=== PATIENT | male | born 1975 | race Caucasian/White ===

== ENCOUNTER 2016-11-30 12:00 | Emergency (ER) | payer OTHER ==
[~2016-11-30] VITALS: Ht 185.4 cm; Wt 108.9 kg
[~2016-11-30 12:00] MED LIST: 'XANAX1 MG PO; ANAPROX DS550 MG PO; ATARAX,VISTARIL50 MG PO; BACTRIM DS 8001 TAB PO; CARBIDOPA/LEVOD1 TA1 PO; CLINDAMYCIN HC300 MG PO; DAYPRO600 M1 PO; ESCITALOPRAM OX10 MG PO; GEODON80 MG PO; HYDROCODONE BIT1 T11 PO; INDOCIN25 MG PO; KEFLEX500 M1 PO; LAMICTAL100 MG PO; LAMOTRIGINE100 MG PO; MOTRIN800 MG PO; Motrin,Rufen800 MG PO; ROBAXIN750 MG PO; SEPTRA DS 800 M1 TAB PO; SUBOXONE 8 MG-1 EACH SL; TRAMADOL HCL50 MG PO; TRIMOX500 MG PO; ULTRAM50 MG PO; VICODIN 5/500 505 MG PO; VOLTAREN50 M1 PO; XANAX2 MG PO; ZOFRAN 4 MG ED2 TAB PO
[2016-11-30] MEDS ORDERED: IBU800 MG PO (12:38)
[2016-11-30] MEDS ORDERED: CEPHALEXIN500 M1 PO (12:38)
== END 2016-11-30 12:45 | disposition home or self-care (01) ==
LOC: ED 12:00
DX: L03.113 Cellulitis of right upper limb (principal); F41.9 Anxiety disorder, unspecified; K21.9 Gastro-esophageal reflux disease without esophagitis; F14.10 Cocaine abuse, uncomplicated; F17.200 Nicotine dependence, unspecified, uncomplicated; Z88.0 Allergy status to penicillin

== ENCOUNTER 2016-12-08 09:15 | Inpatient (IN) | payer OTHER ==
[~2016-12-08] VITALS: Ht 185.4 cm; Wt 108.9 kg
[~2016-12-08 09:15] MED LIST changes: +CEPHALEXIN500 M1 PO; +IBU800 MG PO
[2016-12-08 09:22] VITALS: BP 166/96
[2016-12-08 09:51] LABS: BASO # 0.1 10*3/uL (0.0-0.1); BASO % 0.7 % (0.0-1.0); EOS # 0.2 10*3/uL (0.0-0.4); EOS % 2.6 % (1.0-4.0); HEMATOCRIT 46.9 % (42.0-52.0); HEMOGLOBIN 15.3 g/dl (14.0-18.0); LYMPH # 2.4 10*3/uL (1.3-4.4); LYMPH % 35.2 % (27.0-41.0); MEAN CELL VOLUME 91.4 fl (80.0-94.0); MEAN CORPUSCULAR HGB 29.8 pg (27.0-31.0); MEAN CORPUSCULAR HGB CONC 32.6 g/dl (33.0-37.0); MEAN PLATELET VOLUME 8.9 fl (9.6-12.3); MONO # 1.1 10*3/uL (0.1-1.0); MONO % 15.7 % (3.0-9.0); NEUT # 3.1 10*3/uL (2.3-7.9); NEUT % 45.7 % (47.0-73.0); PLATELET COUNT AUTOMATED 349 10*3/uL (130-400); RED BLOOD COUNT 5.13 10*6/uL (4.50-5.90); RED CELL DISTRI WIDTH 12.8 % (0-14.5); WHITE BLOOD COUNT 6.8 10*3/uL (4.8-10.8)
[2016-12-08 10:05] LABS: ALKALINE PHOSPHATASE 73 U/L (45-117); BILIRUBIN, TOTAL 0.3 mg/dl (0.2-1.0); BUN 10 mg/dl (7-24); CARBON DIOXIDE 34 mmol/L (21-32); CHLORIDE 104 mmol/L (98-107); EST GLOM FILT AFRICAN AMERICAN > 60 ml/min; GLUCOSE 101 mg/dL (65-99); POTASSIUM 3.5 mmol/L (3.5-5.1); SGOT/AST 13 IU/L (3-35); SGPT/ALT 22 U/L (12-78); SODIUM 143 mmol/L (136-145); TOTAL PROTEIN 7.1 gm/dL (6.4-8.2)
[2016-12-08 10:36] VITALS: BP 167/106
[2016-12-08 12:00] VITALS: BP 126/84
[2016-12-08 12:27] LABS: CKMB 0.6 ng/ml (0.5-3.6); CPK 77 U/L (39-308)
[2016-12-08 12:29] LABS: TROPONIN I < 0.015 ng/ml (<0.045)
[2016-12-08 16:00] VITALS: BP 139/72
[2016-12-08 18:14] LABS: CPK 58 U/L (39-308)
[2016-12-08 18:15] LABS: CKMB < 0.5 ng/ml (0.5-3.6); TROPONIN I < 0.015 ng/ml (<0.045)
[2016-12-08 20:00] VITALS: BP 146/87
[2016-12-09] VITALS: BP 144/84
[2016-12-09 00:30] LABS: CKMB < 0.5 ng/ml (0.5-3.6); CPK 44 U/L (39-308); TROPONIN I < 0.015 ng/ml (<0.045)
[2016-12-09 06:15] LABS: BASO % 0.4 % (0.0-1.0); EOS # 0.1 10*3/uL (0.0-0.4); HEMATOCRIT 43.9 % (42.0-52.0); HEMOGLOBIN 14.8 g/dl (14.0-18.0); LYMPH # 2.6 10*3/uL (1.3-4.4); LYMPH % 23.9 % (27.0-41.0); MEAN CELL VOLUME 88.9 fl (80.0-94.0); MEAN CORPUSCULAR HGB CONC 33.7 g/dl (33.0-37.0); MEAN PLATELET VOLUME 9.1 fl (9.6-12.3); MONO # 1.3 10*3/uL (0.1-1.0); MONO % 11.6 % (3.0-9.0); NEUT # 6.8 10*3/uL (2.3-7.9); NEUT % 62.8 % (47.0-73.0); PLATELET COUNT AUTOMATED 343 10*3/uL (130-400); RED BLOOD COUNT 4.94 10*6/uL (4.50-5.90); RED CELL DISTRI WIDTH 12.7 % (0-14.5); WHITE BLOOD COUNT 10.8 10*3/uL (4.8-10.8)
[2016-12-09 06:36] LABS: HEMOGLOBIN A1c 5.9 % (4.8-5.6)
[2016-12-09 06:48] LABS: BUN 7 mg/dl (7-24); CARBON DIOXIDE 28 mmol/L (21-32); CHLORIDE 106 mmol/L (98-107); CHOLESTEROL 102 mg/dL (<200); EST GLOM FILT AFRICAN AMERICAN > 60 ml/min; FREE T4 1.11 ng/dl (0.76-1.46); GLUCOSE 116 mg/dL (65-99); HDL CHOLESTEROL 33 mg/dl (40-60); LDL CHOLESTEROL 50 mg/dL (9-159); MAGNESIUM 1.9 mg/dL (1.5-2.1); POTASSIUM 2.8 mmol/L (3.5-5.1); SODIUM 144 mmol/L (136-145); TRIGLYCERIDES 93 mg/dl (<150); VLDL CHOLESTEROL 19 mg/dL (6-40)
[2016-12-09 06:55] LABS: THYROID STIM HORMONE (HS) 0.458 uIU/ml (0.358-4.75)
[2016-12-09 08:00] VITALS: BP 149/99
== END 2016-12-09 11:40 | disposition left against medical advice (07) | DRG 603 ==
LOC: ED 09:15 → EDHOLD 10:43 → 5E 11:25
PROVIDERS: Nurse Practitioner Family; Student in an Organized Health Care Education/Training Program
DX: L03.113 Cellulitis of right upper limb (principal); E44.0 Moderate protein-calorie malnutrition; F11.23 Opioid dependence with withdrawal; R00.1 Bradycardia, unspecified; R03.0 Elevated blood-pressure reading, without diagnosis of hypertension; K21.9 Gastro-esophageal reflux disease without esophagitis; F14.10 Cocaine abuse, uncomplicated; F41.9 Anxiety disorder, unspecified; R73.03 Prediabetes; Z53.21 Procedure and treatment not carried out due to patient leaving prior to being seen by health care provider; Z71.6 Tobacco abuse counseling; Z88.0 Allergy status to penicillin; Z68.31 Body mass index [BMI] 31.0-31.9, adult; Z82.49 Family history of ischemic heart disease and other diseases of the circulatory system; Z83.3 Family history of diabetes mellitus; Z72.0 Tobacco use

== ENCOUNTER 2017-01-09 13:10 | Emergency (ER) | payer OTHER ==
[~2017-01-09] VITALS: Wt 104.3 kg
[2017-01-09] MEDS ORDERED: SUBOXONE 8 MG-1 EACH SL (13:29)
[2017-01-09] MEDS ORDERED: CLINDAMYCIN150 MG PO (13:37)
[2017-01-09] MEDS ORDERED: NAPROSYN500 MG PO (13:37)
== END 2017-01-09 14:00 | disposition home or self-care (01) ==
LOC: ED 13:10
DX: L03.113 Cellulitis of right upper limb (principal); R03.0 Elevated blood-pressure reading, without diagnosis of hypertension; F17.200 Nicotine dependence, unspecified, uncomplicated; F12.10 Cannabis abuse, uncomplicated

== ENCOUNTER 2017-09-03 00:01 | Emergency (ER) | payer OTHER ==
[~2017-09-03] VITALS: Ht 182.8 cm; Wt 95.3 kg
[~2017-09-03 00:01] MED LIST changes: +CLINDAMYCIN150 MG PO; +NAPROSYN500 MG PO
== END 2017-09-03 02:13 | disposition home or self-care (01) ==
LOC: ED 00:01
DX: S02.2XXA Fracture of nasal bones, initial encounter for closed fracture (principal); M25.471 Effusion, right ankle; F41.9 Anxiety disorder, unspecified; K21.9 Gastro-esophageal reflux disease without esophagitis; Z88.0 Allergy status to penicillin; Y08.89XA Assault by other specified means, initial encounter; Y93.89 Activity, other specified; Y92.89 Other specified places as the place of occurrence of the external cause; Y99.8 Other external cause status

== ENCOUNTER 2020-01-05 19:07 | Emergency (ER) | payer OTHER ==
[2020-01-05 20:21] LABS: BASO # 0.1 10*3/uL (0.0-0.1); BASO % 0.6 % (0.0-1.0); EOS # 0.2 10*3/uL (0.0-0.4); EOS % 2.1 % (1.0-4.0); HEMATOCRIT 47.6 % (42.0-52.0); LYMPH # 1.9 10*3/uL (1.3-4.4); LYMPH % 23.4 % (27.0-41.0); MEAN CELL VOLUME 90.8 fl (80.0-94.0); MEAN CORPUSCULAR HGB 29.6 pg (27.0-31.0); MEAN CORPUSCULAR HGB CONC 32.6 g/dl (33.0-37.0); MEAN PLATELET VOLUME 9.3 fl (9.6-12.3); MONO # 1.2 10*3/uL (0.1-1.0); MONO % 14.8 % (3.0-9.0); NEUT # 4.8 10*3/uL (2.3-7.9); NEUT % 58.9 % (47.0-73.0); PLATELET COUNT AUTOMATED 303 10*3/uL (130-400); RED BLOOD COUNT 5.24 10*6/uL (4.50-5.90); RED CELL DISTRI WIDTH 12.2 % (0-14.5); WHITE BLOOD COUNT 8.2 10*3/uL (4.8-10.8)
[2020-01-05 20:39] LABS: ALBUMIN 3.4 gm/dl (3.1-4.5); ALKALINE PHOSPHATASE 79 U/L (45-117); BUN 13 mg/dl (7-24); CHLORIDE 107 mmol/L (98-107); CREATININE 1.04 mg/dL (0.70-1.30); POTASSIUM 4.2 mmol/L (3.5-5.1); SGOT/AST 25 IU/L (3-35); SGPT/ALT 36 U/L (12-78); SODIUM 139 mmol/L (136-145); TOTAL PROTEIN 8.2 gm/dL (6.4-8.2)
[2020-01-05 20:40] LABS: TROPONIN I < 0.015 ng/ml (<0.045)
[2020-01-05 21:04] LABS: BILIRUBIN NEGATIVE (NEGATIVE); BLOOD NEGATIVE (NEGATIVE); CLARITY CLEAR (CLEAR); COLOR YELLOW (YELLOW); GLUCOSE NEGATIVE (NEGATIVE); KETONE NEGATIVE (NEGATIVE); LEUKO ESTERASE NEGATIVE (NEGATIVE); NITRITE NEGATIVE (NEGATIVE); PH 7.5 (5.0-9.0); SPECIFIC GRAVITY 1.015 (1.005-1.030); WBC 0-2 wbc/hpf (0-5)
[2020-01-05 21:05] LABS: BACTERIA TRACE; MUCOUS TRACE; URINE AMPHETAMINES > 1000 (1000ng/ml); URINE BARBITURATES < 200 (200ng/ml); URINE BENZODIAZEPINES < 200 (200ng/ml); URINE CANNABINOIDS (THC) < 50 (50ng/ml); URINE COCAINE > 300 (300ng/ml); URINE METHADONE < 300 (300ng/ml); URINE OPIATES > 300 (300ng/ml); URINE PHENCYCLIDINE < 25 (25ng/ml)
== END 2020-01-05 22:15 | disposition left against medical advice (07) ==
LOC: ED 19:07
PROVIDERS: Emergency Medicine
DX: F19.10 Other psychoactive substance abuse, uncomplicated (principal); R11.10 Vomiting, unspecified; E86.0 Dehydration; F11.10 Opioid abuse, uncomplicated; F14.10 Cocaine abuse, uncomplicated; K21.9 Gastro-esophageal reflux disease without esophagitis; Z88.0 Allergy status to penicillin; Z79.899 Other long term (current) drug therapy

== ENCOUNTER 2021-03-31 16:10 | Emergency (ER) | payer OTHER | END 2021-03-31 18:32 | disposition left against medical advice (07) | LOC: ED 16:10 | DX: R39.198 Other difficulties with micturition (principal); Z53.21 Procedure and treatment not carried out due to patient leaving prior to being seen by health care provider ==

== ENCOUNTER 2021-06-08 10:45 | Inpatient (IN) | payer OTHER ==
[~2021-06-08] VITALS: Ht 185.4 cm; Wt 99.1 kg
[2021-06-08] VITALS: BP 123/69
[2021-06-08 10:57] VITALS: BP 108/77
[2021-06-08 11:33] LABS: BASO % 0.4 % (0.0-1.0); EOS # 0.1 10*3/uL (0.0-0.4); EOS % 1.4 % (1.0-4.0); HEMATOCRIT 46.7 % (42.0-52.0); LYMPH # 2.2 10*3/uL (1.3-4.4); LYMPH % 22.2 % (27.0-41.0); MEAN CELL VOLUME 89.3 fl (80.0-94.0); MEAN CORPUSCULAR HGB 28.9 pg (27.0-31.0); MEAN CORPUSCULAR HGB CONC 32.3 g/dl (33.0-37.0); MEAN PLATELET VOLUME 8.6 fl (9.6-12.3); MONO % 10.6 % (3.0-9.0); NEUT # 6.4 10*3/uL (2.3-7.9); NEUT % 65.1 % (47.0-73.0); PLATELET COUNT AUTOMATED 410 10*3/uL (130-400); RED BLOOD COUNT 5.23 10*6/uL (4.50-5.90); RED CELL DISTRI WIDTH 12.2 % (0-14.5); WHITE BLOOD COUNT 9.8 10*3/uL (4.8-10.8)
[2021-06-08 11:42] LABS: ALBUMIN 3.6 gm/dl (3.1-4.5); ALKALINE PHOSPHATASE 96 U/L (45-117); BUN 8 mg/dl (7-24); CHLORIDE 103 mmol/L (98-107); CPK 56 U/L (39-308); CREATININE 0.85 mg/dL (0.70-1.30); POTASSIUM 4.1 mmol/L (3.5-5.1); SGOT/AST 15 IU/L (3-35); SGPT/ALT 26 U/L (12-78); SODIUM 136 mmol/L (136-145); TOTAL PROTEIN 8.5 gm/dL (6.4-8.2)
[2021-06-08 11:43] LABS: ETHYL ALCOHOL < 3.0 mg/dl (<3)
[2021-06-08 12:00] VITALS: BP 123/69
[2021-06-08 14:35] LABS: BILIRUBIN Negative (Negative); BLOOD Negative (Negative); CLARITY Clear (Clear); COLOR Yellow (Yellow); GLUCOSE Negative (Negative); KETONE Negative (Negative); LEUKO ESTERASE Negative (Negative); NITRITE Negative (Negative); PH 5.5 (4.5-8.0); SPECIFIC GRAVITY <= 1.005 (1.001-1.030)
[2021-06-08 14:44] LABS: BACTERIA TRACE; EPITHELIAL CELLS 0-2; RBC 0-2 rbc/hpf (0-2); URINE AMPHETAMINES < 1000 (1000ng/ml); URINE BARBITURATES < 200 (200ng/ml); URINE BENZODIAZEPINES < 200 (200ng/ml); URINE CANNABINOIDS (THC) < 50 (50ng/ml); URINE COCAINE > 300 (300ng/ml); URINE METHADONE < 300 (300ng/ml); URINE OPIATES < 300 (300ng/ml); WBC 0-2 wbc/hpf (0-5)
[2021-06-08 14:45] LABS: URINE PHENCYCLIDINE < 25 (25ng/ml)
[2021-06-08 16:00] VITALS: BP 123/69
[2021-06-08 19:57] VITALS: BP 110/68
[2021-06-08 20:15] VITALS: BP 131/82
[2021-06-09] VITALS: BP 123/69
[2021-06-09 08:00] VITALS: BP 122/75
[2021-06-09 12:00] VITALS: BP 152/91
[2021-06-09 16:00] VITALS: BP 164/98
[2021-06-09 20:00] VITALS: BP 147/93
[2021-06-10] VITALS: BP 140/80
[2021-06-10 08:00] VITALS: BP 141/87
== END 2021-06-10 12:33 | disposition left against medical advice (07) | DRG 770 ==
LOC: ED 10:45 → 5E 14:16 → EDHOLD 14:16 → 5E 19:06
PROVIDERS: Emergency Medicine; ADMIT Internal Medicine; ATTEND Internal Medicine
DX: F11.23 Opioid dependence with withdrawal (principal); F12.10 Cannabis abuse, uncomplicated; F14.10 Cocaine abuse, uncomplicated; Z20.822 Contact with and (suspected) exposure to COVID-19; F15.10 Other stimulant abuse, uncomplicated; F17.210 Nicotine dependence, cigarettes, uncomplicated; E83.41 Hypermagnesemia; D75.839 Thrombocytosis, unspecified; E44.1 Mild protein-calorie malnutrition; Z53.29 Procedure and treatment not carried out because of patient's decision for other reasons; K21.9 Gastro-esophageal reflux disease without esophagitis; Z88.0 Allergy status to penicillin; Z79.899 Other long term (current) drug therapy